=== PATIENT | female | born 1970 | race Two or more races ===

== ENCOUNTER 2024-10-31 13:29 | Emergency (ER) | payer OTHER ==
[~2024-10-31] VITALS: Ht 167.6 cm; Wt 56.7 kg
[2024-10-31] MEDS ORDERED: ONDANSETRON HCL 2 MG/ML VIAL ONE (15:41)
[2024-10-31] MEDS ORDERED: BUTALB/ACETAMINOPHEN/CAFFEINE 1 TAB TABLET PO ONE ×2 (15:41→15:45)
[2024-10-31] MEDS ORDERED: FAMOTIDINE/PF 20 MG/2 ML VIAL ONE (15:42)
[2024-10-31] MEDS ORDERED: FAMOtidine 10 MG/ML (4ML VIAL) IV ONE (15:45)
[2024-10-31] MEDS ORDERED: ONDANSETRON HCL 2 MG/ML VIAL IV ONE (15:45)
[2024-10-31] MEDS ORDERED: 0.9 % SODIUM CHLORIDE 500 ML IV ONE (15:45)
[2024-10-31 17:47] LABS: COVID-19 AG NEGATIVE (NEGATIVE)
[2024-10-31 18:36] LABS: BASO % 0.8 % (0.1-1.2); EOS # 0.08 (0.04-0.54); EOS % 1.0 % (0.7-7.0); LYMPH # 1.55 (1.18-3.74); LYMPH % 20.2 % (19.3-53.1); MEAN PLATELET VOLUME 12.10 fl (9.4-12.4); MONO # 0.31 (0.24-0.82); MONO % 4.0 % (4.7-12.5); NEUT # 5.64 (1.56-6.13); NEUT % 73.7 % (34.0-71.1); RED CELL DISTRIBUTION WIDTH 12.3 % (11.6-14.4)
[2024-10-31] MEDS ORDERED: BUTALBIT-ACETA1 EACH PO (19:11)
[2024-10-31] MEDS ORDERED: ZOFRAN8 MG PO (19:11)
== END 2024-10-31 20:44 | disposition home or self-care (01) ==
LOC: ER 13:29
PROVIDERS: General Practice
DX: G43.909 Migraine, unspecified, not intractable, without status migrainosus (principal); R11.2 Nausea with vomiting, unspecified; R11.10 Vomiting, unspecified; Z20.822 Contact with and (suspected) exposure to COVID-19; Z88.6 Allergy status to analgesic agent